=== PATIENT | female | born 1930 | race Caucasian/White ===

== ENCOUNTER 2019-02-15 16:40 | Inpatient (IN) ==
[2019-02-15] MEDS ORDERED: ZOFRAN IV PRN (17:22)
[2019-02-15] MEDS ORDERED: TYLENOL PO PRN (17:22)
[2019-02-15] MEDS ORDERED: VANCOMYCIN IV PER PHARMACY MISC SCH (17:30)
[2019-02-15 17:56] LABS: URINE SOURCE CLEAN CATCH
[2019-02-15] MEDS: NS 1,000 ML IV SCH (17:59)
[2019-02-15] MEDS: ZOSYN 3.375 GM in NS 50 ML IV SCH ×2 (17:59→23:50)
[2019-02-15 18:11] LABS: BILIRUBIN URINE NEGATIVE (NEGATIVE); BLOOD URINE NEGATIVE (NEGATIVE); COLOR YELLOW; GLUCOSE URINE NEGATIVE (NEGATIVE); KETONE URINE NEGATIVE (NEGATIVE); LEUKOCYTES URINE NEGATIVE (NEGATIVE); NITRITE URINE NEGATIVE (NEGATIVE); PH URINE 6.5; PROTEIN URINE NEGATIVE (NEGATIVE); TURBIDITY URINE CLEAR (CLEAR); UR EPITHELIAL CELLS <10 /HPF (<10); URINE BACTERIA NEGATIVE /HPF; URINE RBC <10 /HPF (<10); URINE WBC <10 /HPF (<10); UROBILINOGEN URINE NORMAL (NORMAL)
[2019-02-15] MEDS ORDERED: TYLENOL ARTHRITIS PO PRN (18:39)
--- NOTE | 2019-02-15 18:55 | Diag Imaging Result Doc PS360 ---
EXAM: CHEST-2 VIEWS HISTORY: r/o pna TECHNIQUE: Chest two views COMPARISON: None. FINDINGS: The lungs are well expanded. The heart is borderline mildly prominent. The vessels are not distended. There are no infiltrates. No pleural effusions. IMPRESSION: No pneumonia. Electronically signed by Jack Delcid 02/15/2019 6:53 PM
[2019-02-15] MEDS ORDERED: VANCOMYCIN 1,750 MG in NS 500 ML IV ONE (19:00)
[2019-02-15 19:15] LABS: BASO# 0.03 X1000 (0.0-0.2); BASO% 0.3 % (0.0-0.8); EOS# 0.25 X1000 (0.0-0.7); EOS% 2.5 % (0.0-10.0); HEMATOCRIT 42.6 % (37.0-47.0); HEMOGLOBIN 13.6 g/dL (12.0-16.0); IMM GRAN# 0.05 X1000 (0.0-0.04); IMM GRAN% 0.5 % (0.0-0.5); LYMPH% 34.6 % (20.5-51.1); MCH 31.9 PG (27-31); MCHC 31.9 g/dL (33-37); MCV 99.8 FL (81-99); MONO# 1.35 X1000 (0.11-0.59); MONO% 13.3 % (1.7-9.3); MPV 9.3 FL (7.4-10.4); NEUT# 4.94 X1000 (1.4-6.5); NEUT% 48.8 % (42.2-75.2); PLT 400 X1000 (130-400); RBC 4.27 XMIL (4.2-5.4); RDW 14.2 % (11.5-14.5); WBC 10.12 X1000 (4.8-10.8)
[2019-02-15 19:44] LABS: INR 0.91; PROTIME 13.1 Seconds (11.0-16.0)
[2019-02-15 19:45] LABS: PTT 26.4 Seconds (22.3-41.8)
[2019-02-15 19:47] LABS: AGAP 13; ALB/GLOB RATIO 1.3; ALKALINE PHOSPHATASE 53 U/L (32-104); BUN 18 mg/dL (8-22); CALCIUM 9.5 mg/dL (8.8-10.2); CHLORIDE 100 mmol/L (98-107); CK PROFILE 44 U/L (24-173); COSMO 277; CREATININE 0.7 mg/dL (0.5-0.9); ESTIMATED GFR > 60; GLUCOSE 90 mg/dL (70-104); GOT 30 U/L (10-30); GPT 36 U/L (10-36); MAGNESIUM 2.1 mg/dL (1.5-2.7); SODIUM 138 mmol/L (136-145); TCO2 25 mmol/L (25-35)
--- NOTE | 2019-02-15 19:52 | HISTORY AND PHYSICAL ---
ADDENDUM: I agree with most components of history and physical, assessment and plan, and I evaluated the patient at bedside. The patient's daughter is at bedside. In brief, Ms. Bridges is an 88-year-old lady with past medical history of multiple myeloma, essential hypertension, hypothyroidism, anxiety, CVA on aspirin, paroxysmal atrial fibrillation who comes in with 1 week long history of left posterior swelling and erythema, which happened after bortezomib shot that the patient had been receiving as an outpatient for treatment of multiple myeloma. The patient's swelling and redness and pain was increasing substantially, and she was started on p.o. Keflex by outpatient oncologist; however, it did not subside and in fact 3 days prior to presentation it had started draining. The patient was advised to continue dressing over the weekend and was seen by oncologist office today where it was found that it was developing into an abscess. She was advised to be admitted for intravenous antibiotic and surgical exploration. Currently, patient is complaining of left arm pain and is in mild distress because of that. PHYSICAL EXAMINATION: VITAL SIGNS: Temperature 98.6 degrees, pulse 96, respiratory rate 15, blood pressure 176/82, saturating 97% on room air. GENERAL: Does not appear in any acute distress. Oral cavity is moist. LUNGS: Air entry bilaterally equal. No wheeze, rhonchi, crackles. HEART: Rhythm irregularly irregular. S1, S2 normal. No murmur, rub, or gallop. ABDOMEN: Soft, nontender. She has bilateral lower extremity edema. On left posterior examination, she has about 15 x 15 cm area of induration, erythema, and multiple draining sinuses. LABORATORY DATA: Suggestive of no leukocytosis. Normal hemoglobin, hematocrit, and platelet count. Basic metabolic panel is pending. ASSESSMENT AND PLAN: 1. Left posterior arm carbuncle with history of subcutaneous injection at the site. 2. Atrial fibrillation on aspirin. 3. Essential hypertension. 4. History of hypothyroidism and anxiety. 5. History of cerebrovascular accident. 6. Multiple myeloma on Bortezomib PLAN: Start patient on intravenous fluids, intravenous vancomycin, intravenous Zosyn. Send the drainage culture to the lab. We will consult Surgery and Infectious Disease doctor. Patient would likely need surgical wound debridement. Plan of care discussed with the patient. All of the questions have been answered. The patient's daughter is at bedside. All questions have also been answered. cc: Claude Ryan MD [facility]
[2019-02-15] MEDS: COREG PO SCH (20:39)
--- NOTE | 2019-02-15 20:45 | HISTORY AND PHYSICAL ---
PRIMARY CARE PROVIDER: FUNMILAYO Wagner PRIMARY ONCOLOGIST: Dr. Medrano. CHIEF COMPLAINT: Left arm abscess draining and pain. HISTORY OF PRESENT ILLNESS: Ms. Amy Navarro is an 88-year-old female with a medical history of recent diagnosis of multiple myeloma. She started treatments of Velcade late September. She is three weeks on, one week off, and they alternate the backs of her arms for her subcutaneous injections. Around two weeks ago she noticed that the swelling in the left arm did not go down and then on Friday it had opened and started draining. During this time, Dr. Medrano had been notified and started her on Keflex. The white count reported was 10,000 and afebrile but the drainage does appear to purulent. According to the patient, the cellulitis is better on the arm. So, will admit, start antibiotics, and consult Dr. Montelongo and Dr. Maki. PAST MEDICAL HISTORY: 1. CVA, on Xarelto, left thigh is weaker. 2. Multiple myeloma diagnosed September 2018, started Velcade, three weeks on and one week off towards the end of September. 3. Hypothyroidism. 4. Hypertension. 5. Melanoma over the left calf and upper lip. 6. Hearing impaired. 7. Atrial fibrillation history. That was discovered in 2012. PAST SURGICAL HISTORY: 1. Appendectomy. 2. Partial hysterectomy and bladder repair. 3. Skin cancer removed on the nose ear that was not melanoma. 4. Mole removed from eyelid and excess eyelid skin removed. 5. Melanoma cancer removed from the left lower calf/ankle area. 6. Lymph nodes removed from the groin area. 7. Bilateral cataracts. 8. Rectocele repair. 9. Skin cancer of the left leg, mid calf area, that was not melanoma removed. 10.Another skin cancer removed from the nose that was not melanoma and has had several biopsied areas with the result of melanoma on the lip, and that was removed as well. SOCIAL HISTORY: She denies tobacco, alcohol, or illicit drug use. FAMILY HISTORY: Mother's side of the family was hearing impaired. Father of a motor vehicle accident at age 48 and had one aunt who had breast cancer. ALLERGIES: Sulfonamides and statins. HOME MEDICATIONS: 1. Aspirin 325 mg p.o. daily. 2. Coreg 3.125 mg p.o. twice daily. 3. Dexamethasone 20 mg p.o. every seven days. 4. Lexapro 5 mg p.o. daily. 5. Prilosec 20 mg p.o. daily. 6. Synthroid 88 mcg p.o. daily. 7. Tylenol Arthritis 650 p.o. as needed. 8. Valtrex 500 mg p.o. daily. 9. Vitamin D2, 50,000 units p.o. every 14 days. REVIEW OF SYSTEMS: A 14-point review of systems are complete and all negative except for those mentioned above in HPI. She does have significant pain in the left arm with swelling, heat, and drainage with open wound. PHYSICAL EXAMINATION: VITAL SIGNS: Temperature 98.6, heart rate 97, respiratory rate 16, blood pressure 176/82, oxygen saturation 98% on room air. GENERAL: Ms. Amy Navarro is an 88-year-old female. She is in no acute distress. She is able to answer questions appropriately. HEENT: Atraumatic, normocephalic. Pupils equal, round and reactive to light. Extraocular movements intact. Mucous membranes are dry. She has difficulty with hearing. NECK: Trachea is midline. CARDIOVASCULAR: S1, S2. Regular rate and rhythm. No rubs, gallops, or murmurs. No lower extremity edema. +2 dorsalis and radial pulses. Negative JVD or carotid bruits. PULMONARY: Clear to auscultation. Bilateral breath sounds. No accessory muscle use or work of breathing noted. GI: Soft. Nontender, nondistended. Positive bowel sounds x 4. EXTREMITIES: Moves all extremities equally with full range of motion. NEUROLOGICAL: Alert and oriented x3. Follows commands. Sensory is intact. SKIN: Warm, dry, intact except for behind the left upper arm where it is open and draining purulent fluid. LABORATORY DATA: The only thing that is back right now is urinalysis, which is negative. IMAGING: Chest x-ray without any acute findings. ASSESSMENT AND PLAN: 1. Multiple myeloma with injection site infection, cellulitis, and abscess. Dr. Montelongo and Dr. Maki has been consulted, requested by Dr. Medrano. Started on vancomycin and Zosyn. Cultures obtained. Reported last white blood cell count was 10,000. She is afebrile. The left upper arm site has been sent for culture. 2. Hypertension. Will continue her Coreg. 3. Depression. Continue Lexapro. 4. Gastroesophageal reflux disease. Continue Prilosec. 5. Hypothyroidism. Continue Synthroid. 6. Deep venous thrombosis prophylaxis with sequential compression devices. Dictated by FUNMILAYO Talamantes for Claude Ryan MD cc: FUNMILAYO Talamantes MD I agree with most components of history, physical, assessment and plan. A separate addendum has been dictated. MTDD
[2019-02-16] MEDS: SYNTHROID PO SCH (06:23)
[2019-02-16] MEDS: PRILOSEC PO SCH (06:23)
[2019-02-16] MEDS: ZOSYN 3.375 GM in NS 50 ML IV SCH (06:23)
[2019-02-16] MEDS: NS 1,000 ML IV SCH (06:24)
[2019-02-16 06:50] LABS: BASO# 0.02 X1000 (0.0-0.2); BASO% 0.2 % (0.0-0.8); EOS# 0.21 X1000 (0.0-0.7); EOS% 2.6 % (0.0-10.0); HEMATOCRIT 44.1 % (37.0-47.0); IMM GRAN# 0.05 X1000 (0.0-0.04); IMM GRAN% 0.6 % (0.0-0.5); LYMPH# 3.02 X1000 (1.2-3.4); LYMPH% 37.4 % (20.5-51.1); MCH 31.8 PG (27-31); MCHC 31.7 g/dL (33-37); MCV 100.2 FL (81-99); MONO# 1.11 X1000 (0.11-0.59); MONO% 13.8 % (1.7-9.3); MPV 9.4 FL (7.4-10.4); NEUT# 3.66 X1000 (1.4-6.5); NEUT% 45.4 % (42.2-75.2); PLT 361 X1000 (130-400); RDW 14.3 % (11.5-14.5); WBC 8.07 X1000 (4.8-10.8)
[2019-02-16 07:14] LABS: AGAP 11; ALB/GLOB RATIO 1.2; ALBUMIN 3.9 g/dL (3.5-5.0); ALKALINE PHOSPHATASE 45 U/L (32-104); BUN 14 mg/dL (8-22); CALCIUM 9.6 mg/dL (8.8-10.2); CHLORIDE 106 mmol/L (98-107); COSMO 283; CREATININE 0.6 mg/dL (0.5-0.9); ESTIMATED GFR > 60; GLUCOSE 117 mg/dL (70-104); GOT 26 U/L (10-30); GPT 37 U/L (10-36); MAGNESIUM 2.2 mg/dL (1.5-2.7); POTASSIUM 4.3 mmol/L (3.5-5.1); SODIUM 141 mmol/L (136-145); TCO2 24 mmol/L (25-35); TOTAL PROTEIN 7.2 g/dL (6.3-8.3)
--- NOTE | 2019-02-16 07:35 | EKG Report ---
Test Performed on : 02/15/2019 5:48:32 PM Test Reason : new admission Blood Pressure : / mmHG Vent. Rate : 097 BPM Atrial Rate : 072 BPM P-R Int : 000 ms QRS Dur : 086 ms QT Int : 344 ms P-R-T Axes : 000 -09 042 degrees QTc Int : 436 ms Atrial fibrillation. Abnormal ECG No previous ECGs available Unconfirmed Result
[2019-02-16 07:38] LABS: INR 0.92; PROTIME 13.2 Seconds (11.0-16.0)
[2019-02-16 07:45] LABS: PTT 27.9 Seconds (22.3-41.8)
[2019-02-16] MEDS ORDERED: LEXAPRO PO SCH (09:00)
--- NOTE | 2019-02-16 09:01 | HEMO/ONC CONSULTATION ---
DATE: 02/16/2019 CHIEF COMPLAINT: We were consulted for further management of patient's multiple myeloma. HISTORY OF PRESENT ILLNESS: Ms. Navarro is an 88-year-old female that came to the office yesterday for her regular office visit. About a week ago, she had developed localized cellulitis to the left upper extremity, was placed on antibiotics. About 5 days later the wound opened up and started to drain. The patient was seen in clinic yesterday and wound had continued to get worse despite being on antibiotics. The patient was sent to the hospital for admission at that time for further evaluation and IV antibiotics. Ms. Navarro is well known to us in our clinic where she follows up for IgG kappa multiple myeloma. The patient's bone marrow biopsy revealed a plasma cell burden of 90%, normal karyotype. The patient was started on Velcade and Decadron on 10/26/2018. The patient received her last dose of Velcade on 02/01/2019. The patient has had a very good response to her Velcade and Decadron treatment at this time. PAST MEDICAL HISTORY: Cerebrovascular accident, multiple myeloma, hypothyroidism, hypertension, melanoma, hearing impaired and atrial fibrillation. PAST SURGICAL HISTORY: Appendectomy, partial hysterectomy and bladder repair, skin cancer removal, mole removed from eyelid, melanoma removal, lymph node removal from colon area, bilateral cataracts, rectocele repair, skin cancer of the left leg and another skin cancer removed from the nose. SOCIAL HISTORY: Denies any tobacco, alcohol, or illicit drug use. FAMILY HISTORY: Hearing impaired, breast cancer. ALLERGIES: Sulfa and statins. HOME MEDICATIONS: 1. Aspirin. 2. Coreg. 3. Dexamethasone. 4. Lexapro. 5. Prilosec. 6. Synthroid. 7. Tylenol Arthritis. 8. Valtrex. 9. Vitamin D2. REVIEW OF SYSTEMS: Negative unless mentioned in HPI. PHYSICAL EXAM: Vital Signs: Temperature 97.7 degrees, heart rate 74, respiratory rate 22, blood pressure is 162/92, sat 98% on room air. General: Patient is awake, lying in bed, no acute distress noted. HEENT: Anicteric. PERRLA. Mucous membranes moist. Neck: Supple. Trachea midline. No JVD. Lymph Node Survey: No palpable lymphadenopathy. Cardiovascular: S1, S2. Regular rate and rhythm. Chest: Bilateral breath sounds. Clear to auscultation. Abdomen: Soft, nontender. Bowel sounds present in all 4 quadrants. Neurologic: Alert and oriented x3. No focal deficits noted. Skin: Warm dry and intact except for that left upper arm where it is open and draining purulent fluid. LABORATORY DATA: White count 8.07, hemoglobin 14.0, hematocrit 44.1, platelets are 361. Potassium 4.3, BUN 14, creatinine 0.6. ASSESSMENT/PLAN: 1. Multiple myeloma. The patient last received her Velcade on 02/01/2019. The patient has had a very good response to this at this time. 2. Cellulitis, left upper extremity. Continue antibiotics as ordered per primary medical team. Infectious Disease and Surgery has been consulted. Wound cultures are pending. Continue recommendations. Will continue to monitor. 3. Hypertension. Continue recommendations per primary medical team. 4. Depression. Continue Lexapro. Continue recommendations per primary medical team. 5. Deep venous thrombosis prophylaxis: Continue sequential compression devices. Continue to have the patient get out of bed as much as possible. 6. Supportive care: Continue to have the patient get out of bed as much as possible. Continue protein shakes as instructed. Plan of care discussed with Dr. Medrano. Dictated by FUNMILAYO Sanches for Jose L Medrano MD As above. Patient with multiple myeloma on first-line chemotherapy. So far she has an excellent response to therapy with control of myeloma. She received Velcade about a week ago in her arm as usual which then developed findings of redness warmth and discomfort. This was treated at cellulitis with partial improvement with antibiotics. Over the weekend this started to drain. She has been admitted for further management. Continue IV antibiotics. Appreciate surgical and ID input. Joes L Medrano M.D. cc: FUNMILAYO Sanches MD [facility]
[2019-02-16] MEDS ORDERED: VANCOMYCIN 1,500 MG in NS 250 ML IV SCH (10:00)
[2019-02-16] MEDS: VALTREX PO SCH (10:48)
[2019-02-16] MEDS: ASPIRIN PO SCH (10:48)
[2019-02-16] MEDS: COREG PO SCH ×2 (10:48→21:53)
--- NOTE | 2019-02-16 11:37 | INFECTIOUS DISEASE CONSULT REP ---
DATE: 02/16/2019 CONCLUSION: The patient initially had what appeared to be a phlegmon and abscess on her left arm following an injection of chemotherapy. It has been draining and today when I saw the patient's arm, it appears to be a cellulitis only. RECOMMENDATIONS: I have discontinued Zosyn and vancomycin and put the patient on a combination of cefepime and Zyvox. I have also stopped the patient's Lexapro, which she okayed because the Lexapro can interact with Zyvox, causing an adverse reaction. I have ordered a dressing change to consist of cleaning the patient's wound with hydrogen peroxide and covering with a 4 x 4 and Nicole twice a day and p.r.n. soiling. DISCUSSION: The patient, approximately 2 weeks ago, had an injection of chemotherapy in the left arm. The arm became progressively more erythematous, indurated, and enlarged. It initially appeared that she had a phlegmon with also an abscess present, but the arm yesterday started to drain quite a bit and today it appears to be a cellulitis. The patient's laboratory studies show a CBC with a [place] 8070, hemoglobin 14 and platelet count 361,000. Creatinine is 0.6, GFR greater than 60. Blood and left arm wound cultures are pending. PAST MEDICAL HISTORY: [employer] DES[employer] history, she is a 5, para 4, AB1. She has had a hysterectomy. REVIEW OF SYSTEMS: Eyes and ears: The patient has decreased hearing. Her vision is okay. Neck: No stiffness. Respiratory: No cough or shortness of breath. Cardiac: No chest pain or palpitations. Gastrointestinal: No nausea or vomiting or diarrhea. Genitourinary: No dysuria or flank pain. Bones, joints, muscles: See present illness. Endocrine: The patient does not have diabetes but she does have hypothyroidism. Integument: No rashes. Neurologic: The patient has an expressive aphasia. PREVIOUS HOSPITALIZATIONS AND OPERATIONS: The patient has had an appendectomy. A stroke. She has had skin cancers and melanomas removed. MEDICAL DISEASES: Include obesity, hypertension, stroke with a resulting expressive aphasia, skin cancers, melanoma, hyperlipidemia, and atrial fibrillation. INFECTIOUS DISEASE HISTORY: Negative for pneumonia and UTI. FAMILY HISTORY: Positive for diabetes mellitus, hypertension and cancer. SOCIAL HISTORY[place] . She lives alone. She has a dog as a pet. She does not smoke cigarettes, drink alcoholic beverages or abuse drugs. ALLERGIES: She is allergic to sulfa and statin medications. HOME MEDICATIONS: Include the followin. Tylenol. 2. Aspirin. 3. Carvedilol. 4. Dexamethasone. 5. Vitamins, specifically vitamin D. 6. Lexapro. 7. Synthroid. 8. Prilosec. 9. Valtrex. PHYSICAL EXAMINATION: Vital Signs: Temperature is 97.7 degrees, pulse 71, respirations 14, blood pressure 162/92. The patient is 5 feet 7 inches tall, weighs 199 pounds. General: This is an obese elderly female. She is in no acute distress. Head/eyes/ears/nose/throat: She can hear my spoken words and see near objects. She does not have any white patches on her tongue. Neck: No pain with movement. Thorax: There is a slight dorsal kyphosis. Lungs: Clear to auscultation. Cardiovascular: Heart rate is irregular. The arrhythmia is atrial fibrillation. Abdomen: Soft and nontender. Extremities: The patient's left arm, in the upper part of the arm has an erythematous circular area that is very tender. There is a slight erythema surrounding that superficial wound area. The area is, however, very tender. Neurologic: Patient is alert. She can move her extremities. She has an expressive aphasia. There is no tremor. Her sensation was intact. Her memory regarding her medical condition was decreased. Thank you for the consult. cc: Marshal Montelongo MD
[2019-02-16] MEDS: MAXIPIME 2 GM in NS 100 ML IV SCH ×2 (12:21→23:29)
--- NOTE | 2019-02-16 15:13 | PROGRESS NOTE ---
DATE: 02/16/2019 OVERNIGHT: No acute events. The patient had a lot of drainage from her left posterior arm wound. She did not have any fever or chills. SUBJECTIVE: Feeling fine. Denies any new complaints. She has not been seen by the surgeon doctor. VITALS: Currently temperature 97.7 degrees, pulse 79, respiratory rate 22, blood pressure 160/92, saturating 98% on room air. PHYSICAL EXAMINATION: General: Does not appear in any acute distress. Oral cavity is moist. No pallor, cyanosis, clubbing, or icterus. Air entry bilaterally equal. No wheeze, rhonchi, crackles. S1, S2 normal, irregularly irregular. No murmur, rub, or gallop. Abdomen: Soft, nontender. She has bilateral lower extremity edema. On left posterior examination, she has about 7 x 7 cm area of induration. It looks significantly better than yesterday. There are multiple openings through which pussy discharge is coming out. Looks like a carbuncle. DIAGNOSTIC STUDIES: Labs suggestive of no leukocytosis. Normal electrolytes. Normal coagulations. ASSESSMENT AND PLAN: 1. Left posterior arm carbuncle with history of subcutaneous injection at the time. 2. Atrial fibrillation with controlled ventricular rate, on aspirin. 3. Essential hypertension. 4. History of hypothyroidism. 5. Anxiety. 6. History of multiple myeloma. 7. History of cerebrovascular accident (CVA). PLAN: Continue patient on linezolid and cefepime. I will stop the intravenous fluids. Appreciate Surgery recommendation if she would need drainage anymore since it is draining adequately and spontaneously. I will continue home aspirin for atrial fibrillation, carvedilol for essential hypertension, and valacyclovir. Plan of care discussed with the patient and her daughter at bedside. All of their questions have been answered adequately. cc: Claude Ryan MD
--- NOTE | 2019-02-16 18:10 | GENERAL SURGERY CONSULTATION ---
DATE: 02/16/2019 REASON FOR CONSULTATION: Left arm infection and abscess. HISTORY OF PRESENT ILLNESS: This is an 88-year-old female with multiple myeloma who has been undergoing treatments of Velcade injections in her arms 3 out of every 4 weeks, alternating for 1 arm to the next. Two weeks ago yesterday she had an injection in her left posterior upper arm. Several days after that she noticed increased swelling, pain, redness, and warmth. She was started on Keflex by Dr. Medrano. This continued to worsen and then last week, about 3 or 4 days ago she had spontaneous drainage of purulent material. The arm has been red, tender, and swollen. She was admitted for IV antibiotics and further evaluation. She does note that she has felt better since she started having drainage. PAST MEDICAL HISTORY: Stroke, multiple myeloma, hypothyroidism, hypertension, melanoma, atrial fibrillation. PAST SURGICAL HISTORY: Appendectomy, partial hysterectomy, bladder repair, skin cancer removal, lymph node dissection of the groin, bilateral cataract repair, rectocele repair. SOCIAL HISTORY: Negative for tobacco, alcohol, or illicit drug use. FAMILY HISTORY: She had an aunt with breast cancer. ALLERGIES: Sulfa, statins. HOME MEDICATIONS: Aspirin, Coreg, dexamethasone, Lexapro, Prilosec, Synthroid, Tylenol, Valtrex, vitamin D2. CURRENT MEDICATIONS: Notable for cefepime and Zyvox. REVIEW OF SYSTEMS: Ten systems reviewed and negative except as noted above. PHYSICAL EXAMINATION: Vital Signs: Temperature 97.7 degrees, pulse 87, respirations 20, blood pressure 153/87, O2 saturation 97%. General: Well-developed, well-nourished female in no distress, who looks her stated age. HEENT: Normocephalic, atraumatic. Extraocular muscles intact. Pupils equal, round, reactive to light. Sclerae anicteric. Moist mucous membranes. Neck: Supple. No thyromegaly. CV: Regular rate and rhythm. Respiratory: Bilateral equal breath sounds. No work of breathing. Gastrointestinal: Soft, nontender, nondistended. Musculoskeletal: Moves all extremities equally and well. Skin: The left posterior arm has an area of induration, redness, and localized swelling with some skin breakdown and minor amount of seropurulent drainage noted, although there was no significant fluctuance. LABORATORY: White cell count 8, hemoglobin 14, hematocrit 44, platelet count 361,000. Electrolytes reviewed and unremarkable. ASSESSMENT AND PLAN: This is an 88-year-old female with subcutaneous skin infection with abscess status post spontaneous drainage of left arm after subcutaneous injection. It appears to be improving with adequate drainage on its own. I will continue to observe for now. Continue the current antibiotics. If this continues to improve over the next 1 to 2 days, then I would favor discharge with outpatient oral antibiotics and follow with my office. cc: Arnie Chamorro MD
[2019-02-17] MEDS: SYNTHROID PO SCH (06:07)
[2019-02-17] MEDS: PRILOSEC PO SCH (06:07)
[2019-02-17] MEDS: ZYVOX PO SCH ×3 (06:07→19:39)
--- NOTE | 2019-02-17 08:12 | HEMO/ONC PROGRESS NOTE ---
DATE: 02/17/2019 SUBJECTIVE: The patient continues to feel better. Patient says the pain to her left arm has definitely improved. The patient says that according to other physicians and nurses, the wound continues to look better. OBJECTIVE: Vital Signs: Temperature 97.8 degrees, heart rate 87, respiratory rate 19, blood pressure 150/96, 99% on room air. General: Patient is awake, lying in bed, no acute distress noted. HEENT: Anicteric, pupils PERRLA. Mucous membranes moist. Cardiovascular: S1, S2. Regular rate and rhythm. Chest: Bilateral breath sounds clear to auscultation. Abdomen: Soft, nontender. Bowel sounds present in all 4 quadrants, Skin: Dressing to left upper arm intact. LABORATORY DATA: Pending at this time. ASSESSMENT AND PLAN: 1. Multiple myeloma: We will continue to monitor closely. Once patient is discharged and back to baseline, we can hopefully restart her Velcade at that time. 2. Cellulitis of left upper extremity: Continue antibiotics as ordered by infectious Disease. Continue to monitor closely. 3. Deep vein thrombosis prophylaxis: Continue sequential compression devices. Continue to have patient get out of bed as much as possible. 4. Supportive care: Continue protein shakes as instructed. Plan of care discussed with Dr. Medrano. Dictated by FUNMILAYO Sanches for Jose L Medrano MD Patient seen and examined. As above. Appreciate surgery and ID input. Cellulitis improving with IV antibiotics. Discharge planning per hospitalist when okay with Dr. Montelongo. Jose L Medrano M.D. cc: FUNMILAYO Sanches MD [facility]
[2019-02-17] MEDS: VALTREX PO SCH (09:52)
[2019-02-17] MEDS: ASPIRIN PO SCH (09:52)
[2019-02-17] MEDS: COREG PO SCH (09:53)
[2019-02-17] MEDS: MAXIPIME 2 GM in NS 100 ML IV SCH (15:06)
[2019-02-17 15:50] VITALS: BP 134/73
--- NOTE | 2019-02-17 20:02 | INFECTIOUS DISEASE PROGRESS NO ---
DATE: 02/17/2019 Ms. Navarro is being discharged home today. She has MRSA growing to the left arm. The plan is for her to have two weeks of doxycycline 100 mg by mouth every 12 hours after which time we will see her in our office in 2 weeks. I have explained to her regarding staying away from dairy products within 2 to 3 hours of doxycycline and also sitting upright for 30 minutes to an hour after taking the medication due to the possibility of acid reflux. I have sent her prescription electronically to her pharmacy. She stated understanding. These plans have been discussed with and recommended by Dr. Montelongo. Dictated by FUNMILAYO Franco for Marshal Montelongo MD This chart was documented by, FUNMILAYO Franco and accurately reflects the services performed, treatment plan and medical decisions as attested by the providers signature Marshal Montelongo MD. cc: Marshal Montelongo MD MTDD
--- NOTE | 2019-02-17 20:11 | GENERAL SURGERY PROGRESS NOTE ---
DATE: 02/17/2019 SUBJECTIVE: The patient is feeling better. No new complaints. OBJECTIVE: Vital signs: She is afebrile. Vital signs are stable. Extremities: The left upper arm is examined. There is some remaining induration, but the swelling and erythema are improving. There is no more fluctuance or overt purulent drainage. LABORATORY: The blood culture is positive for MRSA. ASSESSMENT AND PLAN: An 88-year-old female with left arm subcutaneous abscess and infection, which is improving on antibiotics. I think she can be discharged at this point on oral antibiotics per Dr. Montelongo's discretion, and follow up with me in my office in the next 2 weeks for a wound check. cc: Arnie Chamorro MD
--- NOTE | 2019-02-17 22:27 | DISCHARGE SUMMARY ---
ADMISSION DATE: 02/15/2019 DISCHARGE DATE: 02/17/2019 DISCHARGE DIAGNOSES: 1. Left posterior surface of carbuncle or abscess due to subcutaneous injection receiving for multiple myeloma. 2. MRSA skin and soft tissue infection on the left posterior arm abscess. OTHER DIAGNOSES: 1. History of essential hypertension History of hypothyroidism. 2. History of anxiety. 3. History of multiple myeloma on bortezomib therapy, subcutaneous injection. 4. History of cerebrovascular accident. CONSULTATIONS DURING HOSPITALIZATION: 1. Hematology/Oncology: Jose L Medrano MD. 2. Infectious Disease: Marshal Montelongo MD. 3. General surgery: Arnie Chamorro MD. DISCHARGE MEDICATION: Aspirin 325 mg daily, carvedilol 3.125 mg b.i.d., escitalopram 5 mg daily, omeprazole 20 mg daily, levothyroxine 88 mcg daily, acetaminophen 650 mg p.o. as needed, valacyclovir 500 mg daily, vitamin D2 50,000 units every 14 days, doxycycline 100 mg q.12 hours for 14 days have been prescribed. DISCHARGE PHYSICAL EXAMINATION: Vital Signs: At the time of discharge, temperature 97.9, pulse 90, respiratory rate 16, blood pressure 134/73, saturating 98% on room air. General: Does not appear in any acute distress. HEENT: Oral cavity is moist. No pallor. No scleral icterus. Lungs: Air entry bilaterally equal. No wheeze, rhonchi, or crackles. Respiration normal. Cardiac: No murmur, rub, or gallop. It is irregularly irregular. Abdomen: Soft, nontender. Extremities: Bilateral lower extremity edema. On the posterior left examination, she has about 5 x 5 x 3 cm area of induration with multiple openings on the skin surface, draining a pus-like discharge, which has decreased in size and on presentation and has been discharging spontaneously. Wound nurse was also consulted. SIGNIFICANT LABS: During hospital admission, her leukocyte count was 8000, hemoglobin of 14, platelet of 361. Electrolytes were normal. BUN of 14, creatinine of 0.6. Microbiology: Wound culture was growing methicillin resistant Staphylococcus aureus. IMAGING: During hospitalization, chest x-ray on admission did not detect any pneumonia. HOSPITAL COURSE: Ms. Navarro is an 88-year-old, female with above- mentioned past medical history, comes in the hospital, sent over from the disability specialist's office for left posterior abscess. The patient has been receiving subcutaneous injection for multiple myeloma treatment, bortezomib subcutaneously. However, usually after injection, she used to develop some induration, which would get better with time. However, since about 10 days ago when she received her last injection, her induration did not go down and had started developing erythema around it. She had seen Oncology in his office and she was prescribed p.o. antibiotics. However, she did not get better on p.o. antibiotics and the swelling had developed fluctuance and some drainage. She was again seen in the disability specialist's office and considering her draining pus-like abscess, she was admitted to the hospital for intravenous antibiotics. She was initially started on broad-spectrum intravenous antibiotics and wound culture was sent, which eventually grew MRSA, so antibiotics were changed to p.o. At the time of discharge, her abscess had spontaneously started draining with multiple openings on surface of feet and was decreasing in size. Wound nurse was consulted. Surgery was consulted. At the time of discharge, since the carbuncle or abscess was spontaneously draining no surgical intervention was done and patient was discharged on p.o. antibiotics. Plan of care was discussed with the patient and her daughter at bedside. All of their questions have been answered. They were instructed about following up with Infectious Disease doctor and surgeon as an outpatient. TIME SPENT: More than 30 minutes was spent in discharging this patient. cc: Claude Ryan MD MTDD
== END 2019-02-17 20:15 | disposition home or self-care (01) | DRG 868 ==
LOC: DIRADM 16:40 → 3N 16:59
PROVIDERS: ATTEND Internal Medicine
CPT/HCPCS: 71020; 71046; 80053; 81001; 82550; 83605; 83735; 84443; 84484; 85025; 85610; 85730; 87040; 87070; 87077; 87186; 93005; 93010; 94761; 94799; A9270; J0692; J2543; J3370; J7030; J7040